=== PATIENT | female | born 1970 | race Caucasian/White ===

== ENCOUNTER 2019-01-04 22:41 | Emergency (ER) | payer OTHER ==
[~2019-01-04] VITALS: Ht 154.9 cm; Wt 65.9 kg
[~2019-01-04 22:41] MED LIST: HYDR-4011 PO; IBUP-1561 PO
[2019-01-04 22:48] VITALS: Ht 154.9 cm; Wt 65.9 kg
[2019-01-04] MEDS ORDERED: ONDANSETRON (ODT) 4 MG TAB ODT STA (23:06)
--- NOTE | 2019-01-04 23:06 | ERD ---
ER Documentation Chief Complaint Chief Complaint root canal done; dental pain; ONLY GIVEN TYLENOL FOR HOME; PAIN WORSE HPI 48-year-old female, presents to the emergency department, complaining of dental pain after having a root canal done today. The patient has been taking Tylenol without improvement of the symptoms. Otherwise, she denies shortness of breath, no difficulty swallowing, no fever or chills. ROS All systems reviewed and are negative except as per history of present illness. Medications Home Meds Active Scripts Ibuprofen* (Motrin*) 400 Mg Tab, 400 MG PO Q6H PRN for PAIN AND OR ELEVATED TEMP, #30 TAB Prov:ALLA STARK MD 01/04/19 Hydrocodone/Acetaminophen ([place] 5-325 Tablet) 1 Each Tablet, 1 TAB PO Q6H PRN for PAIN, #12 TAB Prov:ALLA STARK MD 01/04/19 Allergies Allergies: Coded Allergies: No Known Allergy (Unverified , 01/04/19) FmHx Family History: diabetes; No coronary disease Physical Exam Vitals Vital Signs Date Temp Pulse Resp B/P (MAP) Pulse Ox O2 O2 Flow FiO2 Time Delivery Rate 01/04/19 98.7 77 19 176/100 99 22:48 (125) Physical Exam Const: No acute distress Head: Atraumatic Eyes: Normal Conjunctiva ENT: Normal External Ears, Nose and Mouth. Neck: Full range of motion. No meningismus. Resp: Clear to auscultation bilaterally Cardio: Regular rate and rhythm, no murmurs Abd: Soft, non tender, non distended. Normal bowel sounds Skin: No petechiae or rashes Back: No midline or flank tenderness Ext: No cyanosis, or edema Neur: Awake and alert Psych: Normal Mood and Affect Results 24 hrs Current Medications Medications Dose Sig/Juan Daniel Start Time Status Last (Trade) Ordered Route PRN Stop Time Admin Dose Reason Admin Morphine 10 mg ONCE ONCE 01/04/19 DC 01/04/19 Sulfate PO 23:30 01/04/19 23:44 (morphine) 23:31 Ibuprofen 600 mg ONCE ONCE 01/04/19 DC 01/04/19 (Motrin) PO 23:30 01/04/19 23:44 23:31 Ondansetron 4 mg ONCE STAT 01/04/19 DC 01/04/19 HCl (Zofran ODT 23:06 01/04/19 23:44 Odt) 23:21 Procedures/MDM Differential diagnosis include but not limited to: Dental abscess, parotitis, sialoadenitis, lymphadenopathy, facial abscess. Low suspicion for systemic infection. Physical examination and clinical presentation consistent most likely with dental pain after a root canal. During the ED course the patient remained stable, no new complaints. Clinical impression discussed with the patient who agrees with management. The patient is stable to be treated outpatient and will be discharged home. Some side effects of prescribed medications (headache, rash, nausea, vomiting, diarrhea, drowsiness, habituation, bleeding, hypertension, interactions with other medications) were reviewed. The patient was instructed to follow up with the primary care provider and dentist in the next 48h. If symptoms persist, worsen or new symptoms develop, then patient should return to the ED immediately. Instructions explained and given directly by me to the patient with acknowledgment and demonstrated understanding. Disclaimer: Inadvertent spelling and grammatical errors are likely due to EHR/dictation software use and do not reflect on the overall quality of patient care. Also, please note that the electronic time recorded on this note does not necessarily reflect the actual time of the patient encounter. Departure Diagnosis: Primary Impression: Pain, dental Additional Impression: History of root canal procedure Condition: Stable Patient Instructions: Dental Pain Additional Instructions: Thank you very much for allowing us to participate in your care. Your health and safety is our top priority at [facility]. The evaluation in the emergency department has been done to rule out an acute emergency. Chronic, [id number] conditions may have not been evaluated; therefore, you need to follow up with a primary care provider in the next 48h. If symptoms persist, worsen or new symptoms develop, then patient should return to the ED immediately. Call your primary care doctor TOMORROW for an appointment during the next 2-4 days and bring all the information provided. Have prescriptions filled and follow precisely the directions on the label. If the symptoms get worse and your provider is unavailable, return to the Emergency Department immediately. ALLA STARK MD Jan 04, 2019 23:06
[2019-01-04] MEDS ORDERED: IBUPROFEN 600 MG TAB PO ONE (23:30)
[2019-01-04] MEDS ORDERED: morphine LIQ (10 MG/5 ML) CUP PO ONE (23:30)
[2019-01-05 00:07] VITALS: BP 167/87; PULSE 63; RESP 20
== END 2019-01-05 00:08 | disposition home or self-care (01) ==
LOC: FTE 22:41
DX: K08.89 Other specified disorders of teeth and supporting structures (principal); Z98.818 Other dental procedure status
CPT/HCPCS: Z7502; Z7610; 99283